=== PATIENT | female | born 1965 | race Caucasian/White ===

== ENCOUNTER → 2017-12-19 | Outpatient (CLI) | payer OTHER ==
[~2017-12-19] MED LIST: Z.0.NO CURRENT MEDS
[2017-12-19 09:40] LABS: HEMATOCRIT 42.1 % (35.0-46.0); HEMOGLOBIN 14.3 GM/DL (11.6-15.3); MEAN CELL VOLUME 86.8 FL (80.0-100.0); MEAN CORPUSCULAR HEMOGLOBIN 29.4 PG (27.0-34.0); MEAN CORPUSCULAR HGB CONC 33.9 % (32.0-36.0); MEAN PLATELET VOLUME 7.3 FL (7.0-11.0); PLATELET COUNT 409 TH/MM3 (150-450); RED BLOOD COUNT 4.85 MIL/MM3 (4.00-5.30); RED CELL DISTRIBUTION WIDTH 13.9 % (11.6-17.2); WHITE BLOOD COUNT 7.8 TH/MM3 (4.0-11.0)
[2017-12-19 09:47] LABS: INTERNATIONAL NORMALIZED RATIO 1.1 RATIO
[2017-12-19 09:59] LABS: BACTERIA, URINE MANY /hpf; BILIRUBIN, URINE NEG (NEG); BLOOD, URINE NEG (NEG); GLUCOSE,URINE NEG (NEG); KETONE, URINE NEG (NEG); NITRITE,URINE NEG (NEG); SQUAMOUS EPITHELIAL CELL URINE 1 /hpf (0-5); URINE COLOR Straw (YELLW/STRAW); URINE LEUKOCYTE ESTERASE NEG (NEG)
[2017-12-19 10:00] LABS: CALCIUM 8.9 MG/DL (8.5-10.1); CREATININE 0.78 MG/DL (0.50-1.00)
--- NOTE | 2017-12-19 22:54 | EKG ---
Date Performed: 12/19/2017 Time Performed: 09:20:17 PTAGE: 52 years EKG: Sinus rhythm LOW QRS VOLTAGE IN PRECORDIAL LEADS POSSIBLE RIGHT VENTRICULAR CONDUCTION DELAY BORDERLINE ECG NO PREVIOUS TRACING DOCTOR: Jose Alfredo Pope Interpretating Date/Time 12/19/2017 22:51:37
== END ==
LOC: CPRE 08:45
PROVIDERS: ATTEND Orthopaedic Surgery
DX: Z01.812 Encounter for preprocedural laboratory examination (principal); Z01.810 Encounter for preprocedural cardiovascular examination; M16.11 Unilateral primary osteoarthritis, right hip; M67.451 Ganglion, right hip; M79.609 Pain in unspecified limb; N39.0 Urinary tract infection, site not specified; B96.20 Unspecified Escherichia coli [E. coli] as the cause of diseases classified elsewhere
CPT/HCPCS: 36415; 80048; 81001; 85027; 85610; 85730; 87077; 87086; 87186; 93005

== ENCOUNTER 2018-01-02 05:56 | Inpatient (IN) ==
[2018-01-02] MEDS ORDERED: Metoprolol Tartrate 25 MG Tablet PO SCH (06:30)
[2018-01-02] MEDS ORDERED: Chlorhexidine Gluconate 2% 1 Pack (2 Cloths) TOPICAL SCH (06:30)
[2018-01-02] MEDS ORDERED: ceFAZolin 2 GM Premix Inj 2 GM/50 ML PIGGYBACK IV.SIG ONE (06:41)
[2018-01-02] MEDS ORDERED: TRANEXAMIC ACID IV.SIG SCH ×2 (07:00→10:00)
[2018-01-02] MEDS ORDERED: ceFAZolin 2 GM Premix Inj 2 GM/50 ML PIGGYBACK IV.SIG SCH (07:00)
[2018-01-02] MEDS ORDERED: Sodium Chlor 0.9% Inj 500 ML IV.SIG SCH (07:00)
[2018-01-02] MEDS ORDERED: SODIUM CHLOR 0.9% IV.SIG SCH ×2 (07:00→10:00)
[2018-01-02] MEDS ORDERED: Sodium Chlor 0.9% Inj 40 ML, Bupivacaine Liposo PF 1.3% Inj 20 ML P-ARTICULR SCH ×2 (07:00)
[2018-01-02] MEDS ORDERED: fentaNYL Citrate Inj 100 MCG/2 ML Ampul ONE (09:59)
--- NOTE | 2018-01-02 10:07 | P.OP ---
- Preoperative Diagnosis (1) Primary osteoarthritis of right hip - Postoperative Diagnosis (1) Primary osteoarthritis of right hip Date of procedure: 01/02/18 Procedure: Right total hip arthroplasty using Angelique prosthesis Surgeon: Jarod Reynoso MD Anesthesiologist/Physician: FIDELINA Jaramillo Estimated blood loss (mL): 250 Pathology: other (Labral cyst) Operation and Findings: Indications and Findings: This 52-year-old woman has had long-standing right hip pain that has been nonresponsive to conservative measures including anti- inflammatory agents, activity modification and ambulatory aids. Physical findings showed limited range of motion in the hip, and antalgic gait and tenderness on motion. Operative findings: There is severe osteoarthritis in the right hip with loss of articular cartilage to [id number]. There are osteophytes. Implants: The acetabular component was a 46 mm Tritanium cluster shell with a 32 mm inner diameter, 0 X3 polyethylene liner. The femoral component was an Accolade 2 size 2 x 132 neck angle. The femoral head was Biolox Delta, 32 mm outer diameter, -4 mm offset. The patient was brought to the clean air operating suite and a general endotracheal anesthetic was administered. The patient was positioned into a lateral position with the operative hip up on a Biomet lateral positioner. The hip and lower extremity were prepped with alcohol, Hibiclens and ChloraPrep and draped in the usual manner with the hip draped free. Patient received prophylactic antibiotics preoperatively. The patient also received tranexamic acid preoperatively. An appropriate timeout procedure was carried out. An incision was made from the midportion of the greater trochanter proximally and posteriorly paralleling the fibers of the gluteus sahil. The incision was deepened through subcutaneous tissues down to the fascia ana and gluteus fascia. The gluteus fascia was then split longitudinally in line with its fibers up to the upper portion of the fascia ana. With wound towels in place, the Charnley retractor was inserted. The sciatic nerve was identified and protected throughout the procedure. Dissection was then carried down to the interval between the gluteus minimus and the piriformis. A retractor was inserted. The piriformis and obturator conjoined tendon was released from the greater trochanter and reflected off the capsule. This was then tagged to the subcutaneous tissues with a 2-0 Vicryl suture to protect the sciatic nerve which was identified and protected throughout the procedure. A capsulotomy was made longitudinally along the femoral neck to the base of the femoral neck and then curved distally along the posterior aspect of the greater trochanter. The hip was internally rotated. Further release of the external rotators was carried out exposing the hip. The hip was dislocated. The femoral neck was transected at the appropriate level using the oscillating saw placement of appropriate retractors. The femoral head was removed. Preparation of the femur was initiated with a box osteotome followed by a curet to identify the medullary canal. Broaching was then initiated with the size 0 broach and went in 1 size increments up to size 2. The broach handle was removed. The femoral neck was then trimmed with a calcar planar. Attention was then directed to the acetabulum. Soft tissues were debrided from the acetabulum. Retractors were placed about the acetabulum. Reaming was then initiated with the 41 mm millimeter reamer and went in 1-2 mm increments up to the 46 mm millimeter diameter reamer. A trial reduction with the -4 mm millimeter trial prosthesis was carried out. When this was deemed to be appropriate, the trial prosthesis was removed. The acetabulum was irrigated and cleaned. The actual prosthesis as noted above was impacted into place and seated appropriately. Drill holes were made and sounded. Appropriate sized screws were inserted to stabilize the acetabulum further. The liner as noted above was inserted into the acetabular shell and impacted into place. Osteophytes were trimmed from the acetabulum. Local anesthetic was administered throughout the area of the acetabulum and anterior aspect of the femur. The trial neck was placed on the broach for the above-noted prosthesis. The femoral head trial was placed onto the femoral neck . A trial reduction was carried out. Adjustment was made as needed. The stability, leg length and motion were excellent. There was no pistoning. The trial prosthesis was removed. The broach was removed. The femoral component was impacted into the medullary canal of the femur after irrigation and suctioning. When this was appropriately seated a trial reduction was again carried out with the trial prosthesis. There was no pistoning. The leg length was appropriate. The stability and motion were excellent. The trial prosthesis was then removed. After cleaning and drying the trunion of the femoral component, the above-noted femoral head was impacted onto the trunnion. The hip was reduced. The stability and mobility were again checked along with leg lengths as noted above. The hip was positioned appropriately and closure commenced after the remainder of the local anesthetic was injected throughout the hip. The external rotators and capsule were repaired with #1 Vicryl interrupted transosseous sutures with a Krakw technique to reattach the external rotators and capsule to the posterior aspect of the greater trochanter. The capsule itself on the superior aspect was closed with #1 Vicryl interrupted [id number] sutures. The sciatic nerve was inspected. The fascia ana and gluteus fascia were repaired with #1 Vicryl interrupted [id number] sutures. The subcutaneous tissues were closed with 2-0 Vicryl interrupted simple sutures with buried knots. The skin was closed with a continuous subcuticular closure of 4-0 Monocryl. The wound was then approximated with Dermabond Prineo. A silver impregnated dressing was applied to the hip. A knee immobilizer was applied to the leg. The patient was transferred from the operating room to the recovery room in satisfactory condition having tolerated the procedure well. Counts are correct. Specimens: None. Estimated blood loss: 250 mL
[2018-01-02] MEDS ORDERED: *morphine SULFATE 4 MG/ML PERIprocedure ONLY ONE ×2 (10:08→10:13)
[2018-01-02] MEDS: Morphine Inj 4 MG/ML Vial ONE ×2 (10:34→10:36)
--- NOTE | 2018-01-02 11:26 | XR ---
EXAM DATE: 01/02/2018 11:15 AM EDT AGE/SEX: 52 years / Female INDICATIONS: Post operative right hip. CLINICAL DATA: This is the patient's initial encounter. Patient reports that signs and symptoms have been present for 1 day and indicates a pain score of Nonresponsive. MEDICAL/SURGICAL HISTORY: Non-responsive. Non-responsive. COMPARISON: No prior exams available for comparison. FINDINGS: Views of the right hip obtained. Status post arthroplasty. No fracture or loosening. Subcutaneous emp hysema and postsurgical changes.. No radiopaque foreign bodies seen. CONCLUSION: Right hip arthroplasty. Electronically signed by: Florencio Sharma MD 01/02/2018 11:25 AM EDT
[2018-01-02] MEDS ORDERED: Phenylephrine/NS 1000 MCG/10ML Syringe IV.PUSH ONE (12:00)
[2018-01-02] MEDS ORDERED: Glycopyrrolate Inj 1 MG/5 ML Syringe IV.PUSH ONE (12:00)
[2018-01-02] MEDS ORDERED: Lidocaine PF 1% Inj 5 ML Syringe INFILTRATN ONE (12:00)
[2018-01-02] MEDS ORDERED: Neostigmine Inj 5 MG/5 ML Syringe IV.PUSH ONE (12:00)
[2018-01-02] MEDS ORDERED: Aluminum/Magnesium/Simethacone Susp 30 ML UDC PO PRN (12:20)
[2018-01-02] MEDS ORDERED: Bisacodyl 10 MG Supp RECTAL PRN (12:20)
[2018-01-02] MEDS ORDERED: Post-op Orders (for Pharmacy) OTHER STA (12:20)
[2018-01-02] MEDS ORDERED: Zolpidem Tartrate 5 MG Tablet PO PRN (13:00)
[2018-01-02] MEDS: Ketorolac Inj 30 MG/ML (IVP) Vial IV.PUSH SCH ×2 (14:00→20:20)
[2018-01-02] MEDS ORDERED: Acetaminophen 325 MG Tablet PO PRN (14:00)
[2018-01-02] MEDS ORDERED: Morphine Inj 4 MG/ML Vial IV.PUSH PRN (14:00)
[2018-01-02] MEDS: Senna/Docusate Sodium 8.6/50 MG Tablet PO SCH (20:20)
[2018-01-03] MEDS: Ketorolac Inj 30 MG/ML (IVP) Vial IV.PUSH SCH ×2 (02:47→08:18)
--- NOTE | 2018-01-03 08:04 | P.PNOP ---
Subjective Interval history: Postop day #1. The patient is doing well. She has minimal complaints related to the hip. She walked several times with her in the huynh. With physical therapy, she walked 10 feet followed by 100 feet. She feels that she is ready to go home. Physical Exam Vital signs: Vital Signs 01/02/18 09:35 01/02/18 09:51 01/02/18 10:00 Temperature 97.3 F L 97.4 F L Pulse Rate 60 89 Respiratory Rate 17 15 15 Blood Pressure 96/51 L 113/58 L 112/56 L Pulse Oximetry 99 100 01/02/18 10:30 01/02/18 10:45 01/02/18 11:00 Temperature Pulse Rate 68 62 64 Respiratory Rate 15 16 16 Blood Pressure 110/57 L 109/58 L 105/59 L Pulse Oximetry 97 98 01/02/18 11:15 01/02/18 11:30 01/02/18 12:00 Temperature Pulse Rate 57 L 56 L 56 L Respiratory Rate 16 16 15 Blood Pressure 99/56 L 104/59 L 100/56 L Pulse Oximetry 98 98 100 01/02/18 13:00 01/02/18 16:00 01/02/18 20:00 Temperature 97.8 F 97.7 F 98.3 F Pulse Rate 68 70 64 Respiratory Rate 16 17 16 Blood Pressure 93/53 L 93/54 L 105/57 L Pulse Oximetry 98 98 96 01/03/18 00:00 01/03/18 03:40 Temperature 98.5 F 98.7 F Pulse Rate 61 66 Respiratory Rate 16 16 Blood Pressure 93/54 L 99/48 L Pulse Oximetry 96 96 Intake & Output 01/02/18 01/03/18 01/03/18 18:59 06:59 18:59 Intake Total 255.74 / 255.74 820 / 820 Output Total 1000 / 1000 Balance -744.26 / -744.26 820 / 820 Intake: IV 255.74 / 255.74 100 / 100 Cyklokapron Inj 574 MG In NS 105.74 / 105.74 Inj 100 ML @ 200 mls/hr IV.SIG ONCE CLAUS Rx#:[id number] Ancef 2 GM Premix Inj 2 gm In 50 / 50 50 ml @ 0 mls/hr IV.SIG .STK- MED ONE Rx#:[id number] Ancef Inj 1,000 MG In NS Inj 100 / 100 100 / 100 100 ML @ 200 mls/hr IV.SIG Q6H CLAUS Rx#:[id number] Oral 720 / 720 Output: Urine 300 / 300 Estimated Blood Loss 700 / 700 Other: # Voids 2 3 Date of Last Bowel Movement 01/02/18 Narrative: The patient is resting comfortably, out of bed in the chair. The neurovascular status is intact. The dressing is dry and intact. - Additional findings Additional findings: Hip X-Ray 01/02/18 00:00 CONCLUSION: Right hip arthroplasty. Assessment and Plan - Ortho Post Op Day # 1 - Problem List (1) Status post total hip replacement, right Code(s): Z96.641 - Presence of right artificial hip joint Status: Acute Plan: Continue postop care and PT. - Assessment and Plan Condition: Good. Orthopedically stable. DVT prophylaxis: TEDs, aspirin, sequentials. Discharge plans: Home with home health care. An appointment was scheduled through the office. Prescriptions: Tramadol 50 mg Patient is having significant pain caused by a total hip arthroplasty which will last more than 3 days. Trial of Tylenol has not helped. I believe that it is medically necessary to treat patients pain because it is affecting patients ability to perform activities of daily living.
[2018-01-03] MEDS: Senna/Docusate Sodium 8.6/50 MG Tablet PO SCH (08:17)
[2018-01-03 08:20] LABS: Hematocrit 32.4 % (35.0-46.0); Hemoglobin 10.8 gm/dL (11.6-15.3)
--- NOTE | 2018-01-03 08:21 | P.DCO ---
- Physical Therapy Physical Therapy: Gait training Hip: Total hip, Protocol: Right, Posterior hip precautions, Progress to weight bearing Canvas Knee Splint: When in bed with 2 pillows between thighs Right Lower Extremity Weight Bearing: Weight bearing as tolerated Right Lower Extremity Range of Motion: Active ROM - Nursing Nursing: Dressing changes Dressing changes: Daily dressing change, Coverderm/Primapore Additional instructions: Do not remove Dermabond Prineo. - Certification Need for Home Health services: I have seen patient Alexsandra Crespo on 01/03/18. My clinical findings support the need for the requested home health care services because: Need for Home Health Services: Limited mobility due to disease progression, Limited ability to care for self, High risk of falls Homebound Certification: I certify that my clinical findings support that this patient is homebound because: Homebound Certification: Post-op weakness, Unsteady gait/balance, Unsafe to leave home unassisted
--- NOTE | 2018-01-03 08:29 | P.DS ---
Date of admission: 01/02/18 05:56 Primary care physician: Vinod Rodríguez MD Anticipated date of discharge: 01/03/18 (This 52-year-old woman) Brief History from admission: This 52-year-old woman has had long-standing arthritis in her right hip which has been nonresponsive to conservative measures. She was admitted for elective total hip arthroplasty. Physical findings showed limited range of motion, and antalgic gait and tenderness on motion. DS: Diagnosis - Discharge Diagnosis (1) Status post total hip replacement, right Status: Acute DS: Medications - Discharge Medications Prescriptions: tramadol [Ultram] 50 mg PO Q6H PRN 7 Days tab PRN Reason: Pain, Severe DS: Summary Hospital Course: The patient was admitted as noted above. The above noted operative procedure was carried out that day. Preoperatively prophylactic antibiotics were administered Ancef according to protocol. These were continued postoperatively. The patient also received tranexamic acid to help with hemostasis according to protocol. In the postanesthesia care unit mechanical methods of DVT prophylaxis in the form of BENIGNO stockings and sequentials were initiated. Physical therapy was initiated on the day of surgery. On postoperative day #1 physical therapy continued. DVT prophylaxis with aspirin 81 mg was initiated at this time. The patient continued physical therapy throughout the hospitalization. The distance walked and range of motion improved throughout the hospitalization. The patient was discharged on postoperative day 1 with the disposition being to home with home health care. An appointment for follow-up was made prior to admission. - Time Spent with Patient Total time spent providing and/or coordinating discharge services: - Quality: VTE Deep Vein Thrombosis/Pulmonary Embolism Present on Admission: No Exam Vital signs: Vital Signs 01/02/18 09:35 01/02/18 09:51 01/02/18 10:00 Temperature 97.3 F L 97.4 F L Pulse Rate 60 89 Respiratory Rate 17 15 15 Blood Pressure 96/51 L 113/58 L 112/56 L Pulse Oximetry 99 100 01/02/18 10:30 01/02/18 10:45 01/02/18 11:00 Temperature Pulse Rate 68 62 64 Respiratory Rate 15 16 16 Blood Pressure 110/57 L 109/58 L 105/59 L Pulse Oximetry 97 98 01/02/18 11:15 01/02/18 11:30 01/02/18 12:00 Temperature Pulse Rate 57 L 56 L 56 L Respiratory Rate 16 16 15 Blood Pressure 99/56 L 104/59 L 100/56 L Pulse Oximetry 98 98 100 01/02/18 13:00 01/02/18 16:00 01/02/18 20:00 Temperature 97.8 F 97.7 F 98.3 F Pulse Rate 68 70 64 Respiratory Rate 16 17 16 Blood Pressure 93/53 L 93/54 L 105/57 L Pulse Oximetry 98 98 96 01/03/18 00:00 01/03/18 03:40 Temperature 98.5 F 98.7 F Pulse Rate 61 66 Respiratory Rate 16 16 Blood Pressure 93/54 L 99/48 L Pulse Oximetry 96 96 Intake & Output 01/02/18 01/03/18 01/03/18 18:59 06:59 18:59 Intake Total 255.74 / 255.74 820 / 820 Output Total 1000 / 1000 Balance -744.26 / -744.26 820 / 820 Intake: IV 255.74 / 255.74 100 / 100 Cyklokapron Inj 574 MG In NS 105.74 / 105.74 Inj 100 ML @ 200 mls/hr IV.SIG ONCE CLAUS Rx#:[id number] Ancef 2 GM Premix Inj 2 gm In 50 / 50 50 ml @ 0 mls/hr IV.SIG .STK- MED ONE Rx#:[id number] Ancef Inj 1,000 MG In NS Inj 100 / 100 100 / 100 100 ML @ 200 mls/hr IV.SIG Q6H [facility]US Rx#:[id number] Oral 720 / 720 Output: Urine 300 / 300 Estimated Blood Loss 700 / 700 Other: # Voids 2 3 Date of Last Bowel Movement 01/02/18 Narrative: Patient is resting comfortably, out of bed in a chair. Dressing is dry and intact. The neurovascular status is intact. Results Procedures completed during hospitalization: Right total hip arthroplasty using Angelique prosthesis, on 01/02/2018. Pending studies at discharge: Pending at discharge 01/02/18 Surgical [PTH] Routine Labs on day of discharge: Labs from last 24 hours 01/03/18 06:42 Hgb 10.8 L Hct 32.4 L - Impressions ITS Impressions Hip X-Ray 01/02/18 00:00 CONCLUSION: Right hip arthroplasty. Discharge Plan - Discharge Disposition Patient Disposition: W/Home Health Service - Discharge Condition Condition: Stable - Discharge Order Discharge Orders: Discharge Order (Routine); Ordered 01/03/18 Ordered By: Jarod Reynoso - Discharge Details Anticipated Discharge Date: 01/03/18 - Physicians Team Primary Care Provider: Vinod Rodríguez Attending Provider: Jarod Reynoso - Rxs /Orders / Referrals /Forms Prescriptions: New aspirin 81 mg Tablet,Chewable 81 mg PO BID RF: 0 tramadol [Ultram] 50 mg Tablet 50 mg PO Q6H PRN (Reason: Pain, Severe) 7 Days RF: 0 Referrals: Vinod Rodríguez MD [Primary Care Provider] - See Instructions - Discharge Instructions Additional Instructions: TAKE ALL MEDICATIONS PRESCRIBED BY YOUR PHYSICIAN. KEEP ALL FOLLOW UP APPOINTMENTS INDICATED. CONTINUE TO USE [facility]ALKER FOR ASSISTANCE WITH AMBULATION.
== END 2018-01-03 14:22 | disposition home health service (06) ==
LOC: HSDI 05:56 → N06 13:08
PROVIDERS: ADMIT Orthopaedic Surgery; ATTEND Orthopaedic Surgery